=== PATIENT | female | born 1960 | race Caucasian/White ===

== ENCOUNTER 2017-07-24 05:40 | Inpatient (IN) | payer BC, OTHER ==
[2017-07-17 13:49] LABS: HEMATOCRIT 41.6 % (37.0-47.0); HEMOGLOBIN 14.1 gm/dL (12.0-15.0); MCH 29.1 pg (26.0-34.0); MCHC 33.9 g/dL (28.0-37.0); MCV 85.9 fL (80.0-100.0); RBC 4.84 mil/uL (4.20-5.00); RDW 13.7 % (10.5-14.5); WBC 8.4 thou/uL (4.0-11.0)
[2017-07-17 13:53] LABS: URINE BILIRUBIN NEGATIVE (Negative); URINE BLOOD NEGATIVE (Negative); URINE COLOR YELLOW; URINE GLUCOSE-RANDOM* NEGATIVE (Negative); URINE KETONES NEGATIVE (Negative); URINE PROTEIN (DIPSTICK) NEGATIVE (Negative); URINE SPECIFIC GRAVITY <= 1.005 (1.005-1.035); URINE UROBILINOGEN 0.2 E.U./dl (0.2-1.0)
[2017-07-17 13:55] LABS: ALBUMIN 3.9 g/dL (3.4-5.0); CALCIUM 9.1 mg/dL (8.5-10.1); CREATININE 0.6 mg/dL (0.6-1.0); POTASSIUM 3.9 mmol/L (3.5-5.1)
[2017-07-17 13:56] LABS: URINE LEUKOCYTES-REFLEX TRACE (Negative)
[2017-07-17 14:01] LABS: PROTIME 10.5 Seconds (9.3-11.4)
[~2017-07-24] VITALS: Ht 165.1 cm; Wt 104.3 kg
[2017-07-24] VITALS (7 sets, daily range): BP systolic 94–147; BP diastolic 50–98
--- NOTE | ~2017-07-24 | EKG ---
[address] [place] [address] ELECTROCARDIOGRAM REPORT Name: DOLORES CHICAS Room #: PRE IN ..#: [id number] Admission: Attend Phys: Jan Galo MD Discharge: Date of : 62 Report #: [id number] THIS REPORT FOR: //name// [facility] Test Date: 2017-07-17 Test Time: 13:17:46 Pat Name: DOLORES CHICAS Department: Room: Gender: F Software Licensing Executive: Rivka DASILVA : 1960 Requested By: Jan Galo Order Number: [id number] MD: Manuel Burnham Measurements Intervals Johnston Rate: 80 P: 53 OR: 171 QRS: -6 QRSD: 95 T: 21 QT: 381 QTc: 440 Interpretive Statements Sinus rhythm Probable left ventricular hypertrophy No previous ECG available for comparison Electronically Signed On 07-17-2017 18:25:26 MOISTURE CONDITIONER OPERATOR by Manuel Burnham [email or web address] <ELECTRONICALLY SIGNED> By: Manuel Burnham MD 07/17/17 1825 1317 1317 Manuel Burnham MD /ISA
--- NOTE | ~2017-07-24 | O ---
[facility] [place] [address] OPERATIVE REPORT Name: DOLORES CHICAS Room #: 408-P ADM IN M.R.#: [id number] Admission: 07/24/17 Attend Phys: Jan Galo MD Discharge: Date of : 62 Report #: [id number] THIS REPORT FOR: //name// CC: Jan Galo Hina Moise DATE OF SERVICE: 07/24/2017 PREOPERATIVE DIAGNOSIS: Left knee osteoarthritis. POSTOPERATIVE DIAGNOSIS: Left knee osteoarthritis. PROCEDURE: Left total knee arthroplasty. SURGEON: Jan Galo MD DENTAL COORDINATOR: Yadira Loyola PA-C. INDICATIONS FOR DENTAL COORDINATOR: Throughout the case extensive retraction and manipulation of the knee was required, this was afforded to me by my central supply assistant. ANESTHESIA: LMA with an adductor canal block. IMPLANTS: [employer] size 5 Legion cobalt chrome posterior stabilized femur, size 4 tibia, size 11 polyethylene and size 32 patella. TOURNIQUET TIME: 61 minutes. ESTIMATED BLOOD LOSS: 50 mL. COMPLICATIONS: None. SPECIMENS: . CONDITION UPON LEAVING THE OR: Stable. INDICATION FOR PROCEDURE: The patient is a 57-year-old female with left knee osteoarthritis. She had failed conservative treatment for this and after discussion with her, she elected for left total knee arthroplasty. DESCRIPTION OF PROCEDURE: Risks, benefits, alternatives, complications were discussed in detail with the patient including, but not limited to risk of anesthesia, risk of damage to nerves, arteries, blood vessels, risk for infection, bleeding, risk for continued knee pain, need for reoperation. Informed consent was obtained from the patient. The left knee was appropriately marked in the preoperative holding area. Adductor canal block was [facility] [address] [place] [address] OPERATIVE REPORT Name: DOLORES CHICAS Room #: 408-P ADM IN M.R.#: [id number] Admission: 07/24/17 Attend Phys: Jan Galo MD Discharge: Date of : 62 Report #: [id number] placed by anesthesia. She was brought to the operating room and placed in supine position on the operating room table. LMA anesthesia was induced without complication. Tourniquet was placed on the left thigh. Left lower extremity was prepped and draped in normal sterile fashion. Time-out was performed properly identifying the patient and procedure as well as the instrumentation. All in the operating room were in agreement. IV clindamycin was given for preoperative antibiotics. Standard midline approach to the knee was made with 10 blade through the skin. Dissection was taken down sharply to the fascia and deep flaps were developed medially and laterally. Fresh 10 blade was used to make a medial parapatellar arthrotomy and the knee was inspected. There was extensive tricompartmental osteoarthritic change. The patella was everted, knee was flexed. ACL and PCL were removed sharply. Drill was used to gain access to the canal of the femur. Distal femoral cutting block was pinned in place. Distal femoral cut was made. Femur was sized, found to be a size 5. The size 5, 4-in-1 cutting block was placed. Anterior, posterior and chamfer cuts were made. After this, the knee was hyperflexed. Remainder of the menisci were removed with Bovie cautery and the drill was used to gain access through the canal of the tibia and intramedullary alignment was used. Resection was based off the lateral plateau and tibial resection was made. After this, posterior osteophytes were removed from the femur. Flexion and extension gaps were checked and found to be well balanced in flexion and extension. Tibia was sized, found to be a size 4. Size 4 tibial trial was placed, a size 5 femoral trial was placed and the box cut was made. Post was placed and this was then trialed with a size 9 and then a size 11 polyethylene and size 11 had a better fit. A 9-mm was taken off the posterior surface of the patella and a 32 patellar button trial was placed. Knee was taken through range of motion, found to be stable, found to have good balance in flexion and extension with good patellar tracking. were removed. Bony ends were thoroughly irrigated with normal saline and a 4 size Legion cobalt chrome femur and a size 32 patella were cemented in place using standard cementation techniques. While the cement cured, a periarticular injection consisting of morphine, ropivacaine, epinephrine and Toradol was placed. After the cement cured, a final size 11 polyethylene was placed. The wound was thoroughly irrigated with normal saline. A gram of vancomycin was placed deep in the knee joint. Fascia was closed with 0 Vicryl, skin was closed with 2-0 Vicryl and 3-0 Monocryl. Dermabond and a RHONA dressing were applied. The patient tolerated this procedure well and went to recovery room under care of anesthesia postoperatively. <ELECTRONICALLY SIGNED> By: Jan Galo MD 07/27/17 1749 1513 1601 Jan Galo MD /nt
[~2017-07-24 05:40] MED LIST: ALLEGRA180 MG PO; AMBIEN 10 MG TA10 MG PO; AMITIZA8 MCG PO; ANASPAZ0.125 MG SUBLING; ARNUITY ELLIP100 MCG INH; DICLOFENAC SODI75 MG PO; EULEXIN 125 MG125 MG PO; GLUCOPHAGE1000 MG PO; IMITREX100 MG PO; LIDOCARE1 EACH TOP; LINZESS290 MCG PO; LOESTRIN 24 FE1 EACH PO; LOVASTAT40 PO; METFORMIN HCL500 M3 PO; NEURONTIN 400400 M1 PO; NEURONTIN600 MG PO; PROAIR RESPICL90 MCG INH; PROBIOTIC1 EAC1 PO; SINGULAIR 10 MG10 M1 PO; SYNTHROID150 MCG PO; TIROSINT125 MCG PO; ZANAFLEX4 MG PO
[2017-07-24 11:12] LABS: URINE BILIRUBIN NEGATIVE (Negative); URINE BLOOD TRACE (Negative); URINE COLOR YELLOW; URINE GLUCOSE-RANDOM* NEGATIVE (Negative); URINE KETONES NEGATIVE (Negative); URINE NITRITE NEGATIVE (Negative); URINE PROTEIN (DIPSTICK) NEGATIVE (Negative); URINE UROBILINOGEN 0.2 E.U./dl (0.2-1.0)
[2017-07-25 05:34] VITALS: BP 108/59
[2017-07-25 05:34] LABS: HEMATOCRIT 36.8 % (37.0-47.0); MCH 28.1 pg (26.0-34.0); MCHC 32.6 g/dL (28.0-37.0); MCV 86.3 fL (80.0-100.0); RBC 4.27 mil/uL (4.20-5.00); RDW 13.5 % (10.5-14.5); WBC 19.6 thou/uL (4.0-11.0)
[2017-07-25 16:31] VITALS: BP 133/77
[2017-07-25 20:00] VITALS: BP 150/83
[2017-07-26 04:00] VITALS: BP 108/56
[2017-07-26 06:29] LABS: HEMATOCRIT 35.3 % (37.0-47.0); HEMOGLOBIN 11.4 gm/dL (12.0-15.0); MCH 28.2 pg (26.0-34.0); MCHC 32.4 g/dL (28.0-37.0); MCV 87.1 fL (80.0-100.0); RBC 4.05 mil/uL (4.20-5.00); RDW 13.9 % (10.5-14.5); WBC 12.2 thou/uL (4.0-11.0)
[2017-07-26 08:00] VITALS: BP 127/79
[2017-07-26 16:24] VITALS: BP 153/92
[2017-07-26 19:30] VITALS: BP 131/80
[2017-07-27 04:00] VITALS: BP 128/75
[2017-07-27 06:07] LABS: HEMATOCRIT 34.9 % (37.0-47.0); HEMOGLOBIN 11.3 gm/dL (12.0-15.0); MCHC 32.4 g/dL (28.0-37.0); MCV 86.5 fL (80.0-100.0); RBC 4.03 mil/uL (4.20-5.00); RDW 13.4 % (10.5-14.5); WBC 11.5 thou/uL (4.0-11.0)
[2017-07-27 10:22] VITALS: BP 135/74
[2017-07-27 15:28] VITALS: BP 124/85
[2017-07-27] MEDS ORDERED: MS CONTIN15 MG PO (17:44)
[2017-07-27] MEDS ORDERED: DILAUDID 2 MG TA2 MG PO (17:44)
[2017-07-27] MEDS ORDERED: TRI-BUFFERED A325 M1 PO (17:44)
[2017-07-27] MEDS ORDERED: COLACE 100 MG100 MG PO (17:45)
[2017-07-27] MEDS ORDERED: BISAC-EVAC10 MG RECTAL (17:45)
[2017-07-27] MEDS ORDERED: ONDANSETRON HCL4 M1 IV PUSH (17:45)
== END 2017-07-27 18:45 | DRG 470 ==
LOC: PRE 05:40 → TBA 05:49 → PRE 09:51 → 4N 15:56
PROVIDERS: Orthopaedic Surgery
PROC: 0SRD0J9 Replacement of Left Knee Joint with Synthetic Substitute, Cemented, Open Approach (ICD-10-PCS; principal; 2017-07-24)
DX: M17.12 Unilateral primary osteoarthritis, left knee (principal); E78.00 Pure hypercholesterolemia, unspecified; G43.909 Migraine, unspecified, not intractable, without status migrainosus; Z88.0 Allergy status to penicillin; Z82.49 Family history of ischemic heart disease and other diseases of the circulatory system
CPT/HCPCS: 10790; 50010; 50101; 50415; 50915; 50954; 51130; 51225; 51771; 53000; 53078; 53364; 54118; 56527; 56528; 57095; 62110; 62900; 64039; 70005

== ENCOUNTER 2017-08-13 10:24 | Inpatient (IN) | payer BC, OTHER ==
[2017-08-13] VITALS (10 sets, daily range): BP systolic 127–146; BP diastolic 61–93
[~2017-08-13] VITALS: Ht 165.1 cm; Wt 104.3 kg
--- NOTE | ~2017-08-13 | O ---
[facility] [place] [address] OPERATIVE REPORT Name: DOLORES CHICAS Room #: 416-P ADM IN M.R.#: [id number] Admission: 08/13/17 Attend Phys: Jan Galo MD Discharge: Date of : 62 Report #: [id number] THIS REPORT FOR: //name// CC: Jennifer Daniel Hina Moise DATE OF SERVICE: 08/13/2017 PREOPERATIVE DIAGNOSIS: Traumatic wound dehiscence, left knee. POSTOPERATIVE DIAGNOSIS: Traumatic wound dehiscence, left knee 13 cm in length. PROCEDURE: Debridement and irrigation, left traumatic knee wound dehiscence with primary closure with application of RHONA wound dressing. SURGEON: Jan Galo MD. ANESTHESIA: LMA. TOURNIQUET TIME: 21 minutes. COMPLICATIONS: None. SPECIMENS: None. ESTIMATED BLOOD LOSS: 50 mL. CONDITION UPON LEAVING THE OPERATING ROOM: Stable. INDICATIONS FOR PROCEDURE: The patient is a 57-year-old female who is 20 days out from a left total knee arthroplasty. She actually was doing very well and went outside this morning to get her newspaper and slipped and fell on the ice. She had a traumatic wound dehiscence of her left knee, went to the Emergency Department. It was decided to bring her to the operating room urgently for debridement, irrigation of the wound dehiscence and primary wound closure. DESCRIPTION OF PROCEDURE: Risks, benefits, alternatives, complications were discussed in detail with the patient including but not limited to risk of anesthesia, risk of damage to nerves, arteries, blood vessels, risk for infection, bleeding and need for reoperation. Informed consent was obtained from the patient. The left knee was appropriately marked in the preoperative holding area. IV Ancef was given for preoperative antibiotics. She was brought to the operating room and placed in the supine position on the operating room table. LMA anesthesia was induced without complication. Tourniquet was placed on the left thigh. Left lower extremity was prepped and draped in normal sterile fashion. Timeout was performed properly identifying the patient and [address] [address] OPERATIVE REPORT Name: DOLORES CHICAS Room #: 416-P ADM IN M.R.#: [id number] Admission: 08/13/17 Attend Phys: Jan Galo MD Discharge: Date of : 62 Report #: [id number] procedure as well as the instrumentation. All in the operating room were in agreement. Left lower extremity was elevated, tourniquet inflated. Tourniquet time was 21 minutes. The wound was then explored and found to be superficial with some shearing of the adipose tissue from the fascial tissue medially. The deep retinacular sutures were intact and there was no evidence of a deep dehiscence of the fascial closure. The wound was then thoroughly irrigated with normal saline using pulse lavage. A Hemovac drain was placed to close down the potential space medially. The skin was closed with 2-0 Vicryl, skin staple and a RHONA wound dressing was applied. The patient tolerated this procedure well, went to the recovery room under care of anesthesia postoperatively. <ELECTRONICALLY SIGNED> By: Jan Galo MD 08/14/17 1645 1514 1529 Jan Galo MD /nt
--- NOTE | ~2017-08-13 | HC ---
[facility] [place] [address] CONSULTATION Name: DOLORES CHICAS Room #: 416-P [facility] IN M.R.#: [id number] Admission: 08/13/17 Attend Phys: Jan Galo MD Discharge: 08/15/17 Date of : 62 Report #: [id number] THIS REPORT FOR: //name// CC: ZACHARIAH Moise DATE OF SERVICE: 08/13/2017 REASON FOR CONSULTATION: Left knee wound dehiscence. HISTORY OF PRESENT ILLNESS: The patient is a 57-year-old female who approximately 3 weeks ago underwent left total knee arthroplasty. She has had an uncomplicated course until today when she went out to get the paper. She slipped on some ice, believe she fell onto her left knee and the wound split open. She came to the Emergency Department, was evaluated. X-rays were taken, which were negative and she was diagnosed with a wound dehiscence. She denies loss of consciousness, denies any other injuries except for some small bruising to her bilateral palms. PAST MEDICAL HISTORY: Significant for IBS, polycystic ovarian disease, asthma, hypercholesterolemia, sciatica. PAST SURGICAL HISTORY: Multiple sinus surgeries, hammertoe repair, uterine ablation, left recent total knee arthroplasty. ALLERGIES: PENICILLIN FROM CHILDHOOD. HOME MEDICATIONS: Reported include lovastatin, flutamide, sumatriptan, zolpidem, hyoscyamine sulfate, diclofenac, lidocaine, metformin, montelukast, linaclotide, levothyroxine, albuterol, fluticasone, gabapentin, lactobacillus and tizanidine. SOCIAL HISTORY: She works as a teacher, typically did not use any ambulatory devices. Her daughter lives with her. She drinks alcohol socially. Denies smoking. REVIEW OF SYSTEMS: MUSCULOSKELETAL: See HPI. NEUROLOGIC: Denies numbness or tingling. LABORATORY DATA: Done on 08/13/2017 show white blood cell count 9.1, hemoglobin 13.7, hematocrit is 41, platelet count of 413. Her INR is 1. Chemistry was grossly normal. PHYSICAL EXAMINATION: [address] [address] CONSULTATION Name: DOLORES CHICAS Room #: 416-P [facility] IN M.R.#: [id number] Admission: 08/13/17 Attend Phys: Jan Galo MD Discharge: 08/15/17 Date of : 62 Report #: [id number] GENERAL: She is alert and oriented, interacts appropriately. She is well-developed, well-nourished female, in no acute distress. VITAL SIGNS: Most recent vital signs show temperature of 36.6, heart rate is 82, respiratory rate 20, blood pressure 145/93, and pulse oximetry is 97% on room air. EXTREMITIES: Examination of her left lower extremity: She has a 2+ dorsalis pedis pulse. Sensation is intact to light touch. EHL, FHL, dorsiflexion and plantar flexion are intact. She is able to perform a straight leg raise and knee extension. She has a 15 cm longitudinal x 3 cm wide split in her prior total knee wound with subcutaneous fat exposed. There is bleeding in the wound and I did not probe it to evaluate the fascia. RADIOGRAPHS: AP, lateral and oblique of the left knee show an intact total knee implant. There is no air noted in the joint. IMPRESSION AND PLAN: Left wound dehiscence after traumatic injury 3 weeks after total knee arthroplasty. I discussed the diagnosis as well as treatment options. I also discussed this with her and with initial treating surgeon, Dr. Jan Galo, and the patient elects to be taken to the operating room for debridement and wound closure. We will start Ancef most likely and we will admit her to the hospital for IV antibiotics and initiation of therapy. The risks, benefits, alternatives, complications of the procedure were briefly discussed including but not limited to infection and wound healing problems. Informed consent was obtained. Dr. Jan Galo will also discuss this with the patient. We will consult Medicine and the medical team. Thank you very much for allowing me to participate in the care of this patient. <ELECTRONICALLY SIGNED> By: Yanira Miller MD 08/31/17 1502 1259 0108 Yanira Miller MD /nt
[~2017-08-13 10:24] MED LIST changes: +BISAC-EVAC10 MG RECTAL; +COLACE 100 MG100 MG PO; +DILAUDID 2 MG TA2 MG PO; +MS CONTIN15 MG PO; +ONDANSETRON HCL4 M1 IV PUSH; +TRI-BUFFERED A325 M1 PO
[2017-08-13 11:19] LABS: BASOPHILS 1.2 % (0.0-2.0); EOSINOPHILS 1.5 % (0.0-3.0); HEMOGLOBIN 13.7 gm/dL (12.0-15.0); LYMPHOCYTES 14.3 % (24.0-44.0); MCH 28.3 pg (26.0-34.0); MCHC 33.5 g/dL (28.0-37.0); MCV 84.7 fL (80.0-100.0); MONOCYTES 5.9 % (1.0-8.0); PLATELET COUNT 413 thou/uL (150-400); POLYS 77.1 % (36.0-66.0); RBC 4.84 mil/uL (4.20-5.00); RDW 14.1 % (10.5-14.5); WBC 9.1 thou/uL (4.0-11.0)
[2017-08-13 11:30] LABS: CALCIUM 9.8 mg/dL (8.5-10.1); CREATININE 0.9 mg/dL (0.6-1.0); POTASSIUM 3.9 mmol/L (3.5-5.1)
[2017-08-13 11:32] LABS: APTT 24.5 Seconds (24.5-32.8); PROTIME 10.7 Seconds (9.3-11.4)
[2017-08-14] VITALS: BP 126/83
[2017-08-14 04:00] VITALS: BP 106/67
[2017-08-14 06:21] LABS: HEMATOCRIT 36.2 % (37.0-47.0); HEMOGLOBIN 11.8 gm/dL (12.0-15.0); MCH 27.8 pg (26.0-34.0); MCHC 32.5 g/dL (28.0-37.0); MCV 85.4 fL (80.0-100.0); RBC 4.24 mil/uL (4.20-5.00)
[2017-08-14 08:00] VITALS: BP 132/110
[2017-08-14 16:00] VITALS: BP 120/68
[2017-08-14 20:30] VITALS: BP 113/74
[2017-08-15 03:40] VITALS: BP 110/65
[2017-08-15 06:47] LABS: HEMATOCRIT 36.6 % (37.0-47.0); HEMOGLOBIN 11.8 gm/dL (12.0-15.0); MCH 27.9 pg (26.0-34.0); MCHC 32.3 g/dL (28.0-37.0); MCV 86.3 fL (80.0-100.0); RBC 4.24 mil/uL (4.20-5.00); RDW 14.1 % (10.5-14.5); WBC 9.7 thou/uL (4.0-11.0)
[2017-08-15 10:56] VITALS: BP 110/65
== END 2017-08-15 13:00 | disposition home health service (06) | DRG 903 ==
LOC: ER 10:24 → 4N 17:18
PROVIDERS: Emergency Medicine; Orthopaedic Surgery
PROC: 0JBP0ZZ Excision of Left Lower Leg Subcutaneous Tissue and Fascia, Open Approach (ICD-10-PCS; principal; 2017-08-13)
DX: T81.33XA Disruption of traumatic injury wound repair, initial encounter (principal); Y83.8 Other surgical procedures as the cause of abnormal reaction of the patient, or of later complication, without mention of misadventure at the time of the procedure; G43.909 Migraine, unspecified, not intractable, without status migrainosus; E78.00 Pure hypercholesterolemia, unspecified; J45.909 Unspecified asthma, uncomplicated; Z79.899 Other long term (current) drug therapy; Y92.89 Other specified places as the place of occurrence of the external cause; Z88.0 Allergy status to penicillin
CPT/HCPCS: 10790; 50010; 50101; 50386; 51412; 53078; 57091; 62110; 62900; 70005

== ENCOUNTER → 2018-08-16 | Outpatient (CLI) | payer BC, OTHER | LOC: NUC 08-10 09:51 | DX: M19.011 Primary osteoarthritis, right shoulder (principal); M19.012 Primary osteoarthritis, left shoulder; M17.0 Bilateral primary osteoarthritis of knee; M19.072 Primary osteoarthritis, left ankle and foot; M19.071 Primary osteoarthritis, right ankle and foot; Z96.652 Presence of left artificial knee joint; W19.XXXA Unspecified fall, initial encounter ==